=== PATIENT | female | born 1940 | race Caucasian/White ===

== ENCOUNTER → 2018-01-23 | Day surgery (SDC) | payer MEDICARE ==
--- NOTE | 2018-01-17 17:14 | Pre Op History & Physical ---
The patient will be presenting for cardiac catheterization with possible intervention on January. HISTORY: A 76-year-old lady with known hypertension, hypercholesterolemia, sleep apnea and GERD. The patient worsening general condition and worsening shortness of breath. She came to our office for evaluation of her severe shortness of breath and chest pressure, chest tightness. She had an ischemic evaluation in September 2017. We elected to treat her medically. However, she came back again on January 06, 2018 complaining of exertional angina with worsening shortness of breath relieved by rest. In view of that, the patient will be having presenting for cardiac catheterization with possible intervention. Her other problem is leg pain and burning sensation. There is slight difference in the leg size with the left being larger than the right. There is no history of deep venous thrombosis. She had venous Doppler done by her MD which showed no DVT. CURRENT MEDICATIONS: Zocor 20 mg, hydrochlorothiazide 25 mg, amlodipine 2.5 mg, Protonix. ALLERGIES: ASPIRIN CAUSING ANAPHYLAXIS. LEVAQUIN, RASH. LISINOPRIL CAUSING COUGH. PAST MEDICAL HISTORY: 1. Hypercholesterolemia. 2. Hypertension. 3. Dizziness. 4. Repeated urinary tract infection. 5. Cholecystectomy. 6. Hysterectomy. 7. Tonsillectomy. 8. Appendectomy. SOCIAL HISTORY: She is . She stopped smoking in the 1980s. She is not an alcohol drinker. FAMILY HISTORY: Father of myocardial infarction at the age of 78. Mother at age 78 with diabetes mellitus and myocardial infarction. Several siblings with coronary artery disease and bypass surgery and hypertension. REVIEW OF SYSTEMS: GENERAL: No fever, no chills. HEENT: Dry mouth. PULMONARY: Moderate shortness of breath on exertion. CARDIAC: As per acute illness. GI: No hematemesis, no melena. : Increased frequency of urination. LOWER EXTREMITIES: Chronic swelling of the lower extremities. NEUROLOGIC: No headache, no seizures, peripheral neuropathy symptoms. PHYSICAL EXAMINATION VITAL SIGNS: Height 5 feet 7 inches, weight 204 pounds, blood pressure 140/80. HEENT: Pupils are reactive. NECK: No elevation of jugular venous pulsation. CHEST: Clear to auscultation and percussion. HEART: PMI at the 5th left intercostal space. Normal 1st and 2nd heart sounds. ABDOMEN: Soft. EXTREMITIES: Mild peripheral edema. NEUROLOGIC: Nonfocal. IMPRESSION: Exertional angina. Low-risk nuclear stress test on September 25, 2017 showing small partially reversible inferior defect. The patient treated medically. Unfortunately, she continued to have a lot of symptoms so she will be presenting for cardiac catheterization with possible intervention. Her other problems include hypertension, hypercholesterolemia and chronic swelling of the lower extremities. PLAN: Cardiac catheterization with possible intervention. Procedure, risks, benefits and alternatives are discussed and explained. Questions are answered. 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 Job#: [id number]
[2018-01-21 12:13] LABS: BASOPHILS # (AUTO) 0.1 (0.0-0.1); BASOPHILS % 0.9 % (0.0-1.0); EOSINOPHILS # (AUTO) 0.5 (0.0-0.4); EOSINOPHILS % 6.2 % (0.0-6.0); HEMATOCRIT 40.5 % (34.2-44.1); HEMOGLOBIN 13.6 g/dL (12.0-16.0); LYMPHOCYTES # (AUTO) 2.5 (1.0-3.2); LYMPHOCYTES % 32.3 % (18.0-39.1); MEAN CORPUSCULAR HEMOGLOBIN 31.8 pg (28-32); MEAN CORPUSCULAR HGB CONC 33.6 g/dL (31-35); MEAN CORPUSCULAR VOLUME 94.6 fL (81-99); MONOCYTES # (AUTO) 0.7 (0.2-0.8); MONOCYTES % 8.7 % (4.4-11.3); NEUTROPHILS % 51.1 % (38.7-80.0); PLATELET COUNT 282 x10e3/uL (140-360); RED BLOOD COUNT 4.28 x10e6/uL (3.6-5.1); RED CELL DISTRIBUTION WIDTH 12.3 % (11.7-14.4)
[2018-01-21 12:21] LABS: INR 1.09; PROTHROMBIN TIME 13.3 seconds (11.9-14.5)
[2018-01-21 12:22] LABS: PARTIAL THROMBOPLASTIN TIME 25.8 seconds (23.8-35.5)
[2018-01-21 12:32] LABS: ALBUMIN 4.4 g/dL (3.5-5.0); ALBUMIN/GLOBULIN RATIO 1.4 (0.8-2.0); ANION GAP 15.8 mmol/L (8-16); CREATININE, SERUM 1.02 mg/dL (0.57-1.11); POTASSIUM 4.8 mmol/L (3.5-5.1)
--- NOTE | 2018-01-21 12:59 | Diagnostic Imaging Report ---
EXAMINATION: CHEST 2 VIEWS INDICATION: \S\PREOP FOR LEFT HEART CATH PROCEDURE COMPARISON: Chest x-ray 01/19/2016 FINDINGS: PA and lateral views TUBES and LINES: None. LUNGS: Lungs are well inflated. Lungs are clear. There is no evidence of pneumonia or pulmonary edema. PLEURA: No pleural effusion or pneumothorax. HEART AND MEDIASTINUM: The cardiomediastinal silhouette is unremarkable. BONES AND SOFT TISSUES: No acute osseous lesion. Soft tissues are unremarkable. UPPER ABDOMEN: No free air under the diaphragm. IMPRESSION: No acute thoracic abnormality. Signed by: Dr. Jesse Mancia M.D. on 01/21/2018 12:56 PM
[~2018-01-23] VITALS: Ht 171.4 cm; Wt 92.5 kg
[2018-01-23] VITALS (18 sets, daily range): BP systolic 121–159; BP diastolic 64–101
[~2018-01-23] MED LIST: AMLODIPINE BESYL5 MG PO; CALCIUM 600 +1 EAC2; CALCIUM600 MG PO; CRESTOR10 MG PO; FENTANYL CITRATE/PF 100MCG/2 ML INJ ONE; FISH OIL 1,0001 EAC2 PO; FISH OIL 1,2001 EAC1 PO; HEPARIN SOD/SOD CHLORIDE 2,000 ML ONE; HYDROCHLOROTHIA25 MG; HYDROCODONE/APAP 5MG-325MG TAB ONE; IOPAMIDOL 370 MG/ML 200 ML INFUS..BTL INJ ONE; LEVOCETIRIZINE D5 MG PO; LIDOCAINE HCL 2% LOCAL 20 ML VIAL ONE; MIDAZOLAM HCL 2 MG/2 ML VIAL ONE; PANTOPRAZOLE SO40 MG PO; PENTOXIFYLLINE400 MG PO; PRENATAL TABLE1 EAC1 PO; PRENATAL VITAM1 EACH; RESTASIS1 EACH; SLEEP AID25 M1 PO; SODIUM CHLORIDE 0.9% 1000ML 1,000 ML ONE; SULFAMETH/TRIMETH PO; ULTRAM 50MG50 MG PO; ULTRAM50 MG PO; VITAMIN C1000 MG PO; ZOCOR20 MG PO; crestor; pantoprazole; tramadol
--- NOTE | 2018-01-23 10:05 | Operative Report ---
DATE OF PROCEDURE: January 23, 2018 OPERATION PERFORMED: Left cardiac catheterization. INDICATIONS: Please refer to the dictated H and P note. TECHNICAL DETAILS: After the usual sterile preparation and draping procedure, intravenous Versed and fentanyl were given for sedation and local Xylocaine for anesthesia. A 4-Upper Sorbian sheath was established in place. Derek left 4 and 3DRC catheters to engage the coronaries. Pigtail for hemodynamic measurement and left ventriculogram. At the end of the procedure, the sheath was removed. Hemostasis was achieved manually. No complication and no blood loss. RESULTS A. Coronary angiogram: 1. Left main: Short left main. 2. LAD: Torturous, giving medium-size diagonal. There are several lesions at 40% distally and at the bend 50%. 3. Circumflex coronary artery: Minimal plaquing, giving very large obtuse marginal. 4. Right coronary artery: A few plaques are noted, dominant artery. B. Hemodynamics: Aortic pressure 140/80. LV pressure 140/18. C. Left ventriculogram in the right anterior oblique view showed normal size ventricle, hypercontractile with ejection fraction of 65% to 70%, with no segmental wall motion abnormality. IMPRESSION 1. Short left main. 2. Dominant right coronary artery. 3. Tortuous artery. 4. Several plaques in very tortuous left anterior descending as described above. 5. Left ventricular ejection fraction of 65% to 70%. COMPLICATIONS: None. BLOOD LOSS: None. Job#: [id number]
== END | disposition home or self-care (01) ==
LOC: CATH LAB 06:23
PROVIDERS: ATTEND Internal Medicine Cardiovascular Disease
DX: I20.8 Other forms of angina pectoris (principal); R94.39 Abnormal result of other cardiovascular function study; I11.9 Hypertensive heart disease without heart failure; I77.1 Stricture of artery; E78.00 Pure hypercholesterolemia, unspecified; M79.89 Other specified soft tissue disorders; R06.09 Other forms of dyspnea; G47.30 Sleep apnea, unspecified; K21.9 Gastro-esophageal reflux disease without esophagitis; Z88.6 Allergy status to analgesic agent; Z88.1 Allergy status to other antibiotic agents; Z88.8 Allergy status to other drugs, medicaments and biological substances; Z01.818 Encounter for other preprocedural examination; Z01.812 Encounter for preprocedural laboratory examination; Z87.891 Personal history of nicotine dependence; Z87.440 Personal history of urinary (tract) infections; Z82.49 Family history of ischemic heart disease and other diseases of the circulatory system
CPT/HCPCS: 36415; 71046; 80053; 85025; 85610; 85730; 93458; C1766; J2001; J2250; J7030; Q9967

== ENCOUNTER → 2021-04-21 | Day surgery (SDC) | payer MEDICARE ==
[2021-04-19 12:07] LABS: BASOPHILS # (AUTO) 0.1 (0.0-0.1); BASOPHILS % 0.6 % (0.0-1.0); EOSINOPHILS # (AUTO) 0.4 (0.0-0.4); EOSINOPHILS % 4.9 % (0.0-6.0); HEMATOCRIT 37.8 % (34.2-44.1); HEMOGLOBIN 11.9 g/dL (12.0-16.0); LYMPHOCYTES # (AUTO) 2.3 (1.0-3.2); LYMPHOCYTES % 26.7 % (18.0-39.1); MEAN CORPUSCULAR HEMOGLOBIN 30.1 pg (28-32); MEAN CORPUSCULAR HGB CONC 31.5 g/dL (31-35); MEAN CORPUSCULAR VOLUME 95.7 fL (81-99); MONOCYTES # (AUTO) 0.7 (0.2-0.8); MONOCYTES % 8.3 % (4.4-11.3); NEUTROPHILS % 58.8 % (38.7-80.0); PLATELET COUNT 311 x10e3/uL (140-360); RED BLOOD COUNT 3.95 x10e6/uL (3.6-5.1); RED CELL DISTRIBUTION WIDTH 13.3 % (11.7-14.4)
[2021-04-19 12:29] LABS: ANION GAP 13.3 mmol/L (8-16); CREATININE, SERUM 1.29 mg/dL (0.57-1.11); POTASSIUM 4.3 mmol/L (3.5-5.1)
[~2021-04-21] MED LIST changes: +BUPIVACAINE HCL 0.5% INJ 30 ML VIAL INJ ONE; +DEXAMETHASONE SOD PHOS INJ 4 MG/ML SDV ONE; -FENTANYL CITRATE/PF 100MCG/2 ML INJ ONE; +GLIMEPIRIDE1 MG; -HEPARIN SOD/SOD CHLORIDE 2,000 ML ONE; -HYDROCODONE/APAP 5MG-325MG TAB ONE; -IOPAMIDOL 370 MG/ML 200 ML INFUS..BTL INJ ONE; -LIDOCAINE HCL 2% LOCAL 20 ML VIAL ONE; +LOSARTAN POTASS25 MG PO; -MIDAZOLAM HCL 2 MG/2 ML VIAL ONE; +ONDANSETRON HCL INJ 2MG/ML 2ML 2 MG/ML VIAL ONE; +POVIDONE IODINE 0.05% 0.05 % ML PO ONE; +PROPOFOL IV EMULSION 10 MG/ML 20 ML VIAL ONE; +SEVOFLURANE INHAL SOLN 250 ML PEN BTL ONE; -SODIUM CHLORIDE 0.9% 1000ML 1,000 ML ONE
[2021-04-21 08:46] VITALS: BP 148/80
== END | disposition home or self-care (01) ==
LOC: OR 05:25
PROVIDERS: ATTEND Podiatrist Foot Surgery
DX: M86.9 Osteomyelitis, unspecified (principal); L89.899 Pressure ulcer of other site, unspecified stage; M20.42 Other hammer toe(s) (acquired), left foot; G47.33 Obstructive sleep apnea (adult) (pediatric); E11.22 Type 2 diabetes mellitus with diabetic chronic kidney disease; I13.0 Hypertensive heart and chronic kidney disease with heart failure and stage 1 through stage 4 chronic kidney disease, or unspecified chronic kidney disease; N18.9 Chronic kidney disease, unspecified; I50.9 Heart failure, unspecified; I44.7 Left bundle-branch block, unspecified; Z88.6 Allergy status to analgesic agent; Z88.1 Allergy status to other antibiotic agents; Z88.8 Allergy status to other drugs, medicaments and biological substances; Z01.810 Encounter for preprocedural cardiovascular examination; Z01.812 Encounter for preprocedural laboratory examination; Z01.818 Encounter for other preprocedural examination; Z20.822 Contact with and (suspected) exposure to COVID-19; Z79.84 Long term (current) use of oral hypoglycemic drugs; Z79.899 Other long term (current) drug therapy
CPT/HCPCS: 28825; 36415 ×2; 71046; 76000; 80048; 82948; 85025; 87071; 87075; 87205; 93005; J0690; J1100; J2405; J2704; U0002

== ENCOUNTER → 2021-10-13 | Outpatient (CLI) | payer MEDICARE ==
[~2021-10-13] MED LIST changes: -BUPIVACAINE HCL 0.5% INJ 30 ML VIAL INJ ONE; -DEXAMETHASONE SOD PHOS INJ 4 MG/ML SDV ONE; -ONDANSETRON HCL INJ 2MG/ML 2ML 2 MG/ML VIAL ONE; -POVIDONE IODINE 0.05% 0.05 % ML PO ONE; -PROPOFOL IV EMULSION 10 MG/ML 20 ML VIAL ONE; -SEVOFLURANE INHAL SOLN 250 ML PEN BTL ONE
== END ==
LOC: US 08:21
PROVIDERS: ATTEND Urology
DX: N18.9 Chronic kidney disease, unspecified (principal); R80.9 Proteinuria, unspecified
CPT/HCPCS: 74018; 76770; 76857

== ENCOUNTER 2022-10-08 13:55 | Inpatient (IN) | payer MEDICARE ==
[~2022-10-08] VITALS: Ht 171.4 cm; Wt 90.7 kg
[2022-10-08] MEDS ORDERED: HYDRALAZINE HCL 20 MG/ML VIAL IV STA (14:31)
[2022-10-08 14:52] LABS: BASOPHILS # (AUTO) 0.1 (0.0-0.1); BASOPHILS % 0.5 % (0.0-1.0); EOSINOPHILS # (AUTO) 0.3 (0.0-0.4); EOSINOPHILS % 1.6 % (0.0-6.0); HEMATOCRIT 37.5 % (34.2-44.1); HEMOGLOBIN 11.7 g/dL (12.0-16.0); LYMPHOCYTES # (AUTO) 1.7 (1.0-3.2); LYMPHOCYTES % 9.8 % (18.0-39.1); MEAN CORPUSCULAR HEMOGLOBIN 30.2 pg (28-32); MEAN CORPUSCULAR HGB CONC 31.2 g/dL (31-35); MEAN CORPUSCULAR VOLUME 96.9 fL (81-99); MONOCYTES # (AUTO) 1.1 (0.2-0.8); MONOCYTES % 6.4 % (4.4-11.3); NEUTROPHILS # (AUTO) 13.6 (2.1-6.9); NEUTROPHILS % 80.9 % (38.7-80.0); PLATELET COUNT 379 x10e3/uL (140-360); RED BLOOD COUNT 3.87 x10e6/uL (3.6-5.1); RED CELL DISTRIBUTION WIDTH 14.1 % (11.7-14.4)
[2022-10-08 14:57] LABS: INR 1.01; PROTHROMBIN TIME 13.8 seconds (11.9-14.5)
[2022-10-08 14:58] LABS: PARTIAL THROMBOPLASTIN TIME 28.5 seconds (23.8-35.5)
[2022-10-08 15:05] LABS: ALANINE AMINOTRANSFERASE 25 IU/L (0-55); ALBUMIN 4.3 g/dL (3.5-5.0); ALBUMIN/GLOBULIN RATIO 1.5 (0.8-2.0); ALKALINE PHOSPHATASE 47 IU/L (40-150); BLOOD UREA NITROGEN 20 mg/dL (7-26); BUN/CREATININE RATIO 21 (6-25); CALCIUM 9.2 mg/dL (8.4-10.2); CARBON DIOXIDE 24 mmol/L (22-29); CHLORIDE 107 mmol/L (98-107); CREATININE, SERUM 0.97 mg/dL (0.57-1.11); GLUCOSE 122 mg/dL (74-118); MAGNESIUM 2.1 MG/DL (1.3-2.1); SODIUM 142 mmol/L (136-145)
[2022-10-08 15:25] LABS: CLARITY,URINE SL CLOUDY (CLEAR); COLOR,URINE YELLOW (YELLOW); LEUKOCYTE ESTERASE ,URINE NEGATIVE (NEGATIVE); NITRITE,URINE NEGATIVE (NEGATIVE); PROTEIN,URINE DIPSTICK NEGATIVE (NEGATIVE)
[2022-10-08 15:26] LABS: KETONES,URINE NEGATIVE (NEGATIVE); URINE UROBILINOGEN 0.2 mg/dL (0.2 - 1)
[2022-10-08 15:40] LABS: BACTERIA,URINE FEW /HPF; EPITHELIAL CELLS,URINE FEW /LPF; WBC,URINE (MAN) 0-5 /HPF (0-5)
[2022-10-08] MEDS ORDERED: SODIUM CHLORIDE 0.9% 1000ML 1,000 ML IV ONE (15:45)
[2022-10-08] MEDS ORDERED: CEFTRIAXONE 1 GM VIAL IM ONE (15:45)
[2022-10-08] MEDS ORDERED: Vancomycin IV 1 GM in SODIUM CHLORIDE 0.9% 250ML 250 ML IV ONE (16:45)
[2022-10-08] MEDS ORDERED: ONDANSETRON HCL INJ 2MG/ML 2ML 2 MG/ML VIAL IV PRN (18:15)
[2022-10-08] MEDS ORDERED: Morphine 2mg Syringe 2 MG/ML SYR IV PRN (18:15)
[2022-10-08] MEDS: FAMOTIDINE 20 MG/2 ML VIAL IV SCH (18:59)
[2022-10-09] VITALS (12 sets, daily range): BP systolic 139–153; BP diastolic 56–90; PULSE 68–85; RESP 17–20; TEMP 98.1–98.7; O2SAT 95–100
[2022-10-09] MEDS ORDERED: HYDRALAZINE HCL 20 MG/ML VIAL IV PRN
[2022-10-09] MEDS ORDERED: ACETAMINOPHEN 325 MG TAB PO PRN
[2022-10-09] MEDS ORDERED: AMLODIPINE BESYL5 MG PO (00:09)
[2022-10-09] MEDS ORDERED: SODIUM CHLORIDE 0.9% 100 ML ONE (04:01)
[2022-10-09 06:03] LABS: BASOPHILS # (AUTO) 0.1 (0.0-0.1); BASOPHILS % 0.5 % (0.0-1.0); EOSINOPHILS # (AUTO) 0.3 (0.0-0.4); EOSINOPHILS % 2.1 % (0.0-6.0); HEMATOCRIT 34.5 % (34.2-44.1); HEMOGLOBIN 10.9 g/dL (12.0-16.0); LYMPHOCYTES # (AUTO) 1.9 (1.0-3.2); LYMPHOCYTES % 12.8 % (18.0-39.1); MEAN CORPUSCULAR HGB CONC 31.6 g/dL (31-35); MONOCYTES % 6.9 % (4.4-11.3); NEUTROPHILS # (AUTO) 11.3 (2.1-6.9); NEUTROPHILS % 77.2 % (38.7-80.0); PLATELET COUNT 310 x10e3/uL (140-360); RED BLOOD COUNT 3.63 x10e6/uL (3.6-5.1); RED CELL DISTRIBUTION WIDTH 14.3 % (11.7-14.4)
[2022-10-09] MEDS: FAMOTIDINE 20 MG/2 ML VIAL IV SCH ×2 (06:25→16:51)
[2022-10-09 06:33] LABS: ANION GAP 12.5 mmol/L (8-16); CREATININE, SERUM 0.84 mg/dL (0.57-1.11); POTASSIUM 3.5 mmol/L (3.5-5.1)
[2022-10-09 06:34] LABS: ALBUMIN 3.7 g/dL (3.5-5.0); ALBUMIN/GLOBULIN RATIO 1.4 (0.8-2.0)
[2022-10-09 06:58] LABS: PHOSPHORUS 3.1 MG/DL (2.3-4.7)
[2022-10-09] MEDS ORDERED: GLIMEPIRIDE1 MG PO (18:31)
[2022-10-09] MEDS: SIMVASTATIN 20 MG TAB PO SCH (21:21)
[2022-10-09] MEDS: ZOLPIDEM TARTRATE 10 MG TAB PO PRN (21:21)
[2022-10-10] VITALS (9 sets, daily range): BP systolic 141–166; BP diastolic 54–88; PULSE 71–92; RESP 17–20; TEMP 97.8–98.4; O2SAT 97–100
[2022-10-10] MEDS: FAMOTIDINE 20 MG/2 ML VIAL IV SCH (05:21)
[2022-10-10 05:48] LABS: BASOPHILS # (AUTO) 0.1 (0.0-0.1); BASOPHILS % 0.5 % (0.0-1.0); EOSINOPHILS # (AUTO) 0.3 (0.0-0.4); EOSINOPHILS % 3.6 % (0.0-6.0); HEMATOCRIT 33.8 % (34.2-44.1); HEMOGLOBIN 10.7 g/dL (12.0-16.0); LYMPHOCYTES # (AUTO) 1.9 (1.0-3.2); LYMPHOCYTES % 19.9 % (18.0-39.1); MEAN CORPUSCULAR HEMOGLOBIN 30.2 pg (28-32); MEAN CORPUSCULAR HGB CONC 31.7 g/dL (31-35); MEAN CORPUSCULAR VOLUME 95.5 fL (81-99); MONOCYTES # (AUTO) 0.8 (0.2-0.8); MONOCYTES % 8.8 % (4.4-11.3); NEUTROPHILS # (AUTO) 6.3 (2.1-6.9); NEUTROPHILS % 66.5 % (38.7-80.0); PLATELET COUNT 304 x10e3/uL (140-360); RED BLOOD COUNT 3.54 x10e6/uL (3.6-5.1); RED CELL DISTRIBUTION WIDTH 14.3 % (11.7-14.4)
[2022-10-10 06:27] LABS: ALBUMIN 3.6 g/dL (3.5-5.0); ALBUMIN/GLOBULIN RATIO 1.3 (0.8-2.0); ANION GAP 12.7 mmol/L (8-16); CALCIUM 8.8 mg/dL (8.4-10.2); CREATININE, SERUM 0.82 mg/dL (0.57-1.11); POTASSIUM 3.7 mmol/L (3.5-5.1)
[2022-10-10 07:55] LABS: THYROID STIMULATING HORMONE 2.215 uIU/mL (0.350-4.940)
[2022-10-10] MEDS: GLIMEPIRIDE 2 MG TAB PO SCH (08:49)
[2022-10-10] MEDS: AMLODIPINE BESYLATE 5 MG TAB PO SCH (09:00)
[2022-10-10] MEDS: LOSARTAN POTASSIUM 25 MG TAB PO SCH (09:01)
[2022-10-10] MEDS ORDERED: ONDANSETRON HCL 4 MG ORAL DISINTEGRATING TAB PO PRN (11:45)
[2022-10-10] MEDS: FAMOTIDINE 20 MG TAB PO SCH (16:02)
[2022-10-10] MEDS: ZOLPIDEM TARTRATE 10 MG TAB PO PRN (21:53)
[2022-10-10] MEDS: SIMVASTATIN 20 MG TAB PO SCH (21:53)
[2022-10-11] VITALS (9 sets, daily range): BP systolic 131–153; BP diastolic 50–66; PULSE 72–87; RESP 18–21; TEMP 98.1–98.7; O2SAT 96–99
[2022-10-11] MEDS: FAMOTIDINE 20 MG TAB PO SCH ×2 (07:30→16:58)
[2022-10-11] MEDS: GLIMEPIRIDE 2 MG TAB PO SCH (07:48)
[2022-10-11] MEDS ORDERED: BUPIVACAINE HCL 0.5% INJ 30 ML VIAL INJ ONE ×2 (08:40)
[2022-10-11] MEDS ORDERED: NEOSTIGMINE 1 MG/ML 10ML VIAL ONE (08:41)
[2022-10-11] MEDS: AMLODIPINE BESYLATE 5 MG TAB PO SCH (11:22)
[2022-10-11] MEDS: LOSARTAN POTASSIUM 25 MG TAB PO SCH (11:23)
[2022-10-11] MEDS ORDERED: ONDANSETRON HCL INJ 2MG/ML 2ML 2 MG/ML VIAL ONE (13:24)
[2022-10-11] MEDS ORDERED: LIDOCAINE HCL 2% LOCAL INJ 5 ML SDV VIAL INJ ONE (13:24)
[2022-10-11] MEDS ORDERED: PROPOFOL IV EMULSION 10 MG/ML 20 ML VIAL ONE (13:24)
[2022-10-11] MEDS ORDERED: SEVOFLURANE INHAL SOLN 250 ML PEN BTL ONE (13:24)
[2022-10-11] MEDS ORDERED: POVIDONE IODINE 0.05% 0.05 % ML PO ONE (13:24)
[2022-10-11] MEDS ORDERED: FENTANYL CITRATE/PF 100MCG/2 ML INJ ONE (14:08)
[2022-10-11] MEDS: TRAMADOL HCL 50 MG TAB PO PRN (18:43)
[2022-10-11] MEDS: SIMVASTATIN 20 MG TAB PO SCH (21:18)
[2022-10-11] MEDS: ZOLPIDEM TARTRATE 10 MG TAB PO PRN (22:28)
[2022-10-12 06:31] VITALS: PULSE 80; RESP 20; O2SAT 98
[2022-10-12] MEDS: FAMOTIDINE 20 MG TAB PO SCH ×2 (08:30→16:30)
[2022-10-12 08:42] VITALS: BP 144/58; PULSE 69; RESP 16; TEMP 98.6; O2SAT 96
[2022-10-12] MEDS: GLIMEPIRIDE 2 MG TAB PO SCH (08:54)
[2022-10-12 08:55] VITALS: BP 144/58; PULSE 69; RESP 16; TEMP 98.6; O2SAT 96
[2022-10-12] MEDS: LOSARTAN POTASSIUM 25 MG TAB PO SCH (09:16)
[2022-10-12] MEDS: AMLODIPINE BESYLATE 5 MG TAB PO SCH (09:16)
[2022-10-12] MEDS ORDERED: ACETAMINOPHEN325 M1 PO (09:18)
[2022-10-12] MEDS ORDERED: ONDANSETRON ODT4 MG PO (09:18)
[2022-10-12 12:07] VITALS: BP 134/55; PULSE 73; RESP 19; TEMP 98.8; O2SAT 97
[2022-10-12] MEDS: TRAMADOL HCL 50 MG TAB PO PRN (13:33)
[2022-10-12 15:55] VITALS: BP 141/55; PULSE 74; RESP 17; TEMP 98.6; O2SAT 97
== END 2022-10-12 17:58 | disposition home or self-care (01) | DRG 854 ==
LOC: ER 13:59 → ERHOLD 18:07 → MED/SURG2 23:27
PROVIDERS: ADMIT Internal Medicine; ATTEND Internal Medicine
PROC: 3E03329 Introduction of Other Anti-infective into Peripheral Vein, Percutaneous Approach (ICD-10-PCS; 2022-10-08)
PROC: 0Y6Q0Z1 Detachment at Left 1st Toe, High, Open Approach (ICD-10-PCS; principal; 2022-10-11 09:29)
PROC: 0QBR0ZZ Excision of Left Toe Phalanx, Open Approach (ICD-10-PCS; 2022-10-11 09:29)
DX: A41.9 Sepsis, unspecified organism (principal); L03.116 Cellulitis of left lower limb; L97.528 Non-pressure chronic ulcer of other part of left foot with other specified severity; M86.8X7 Other osteomyelitis, ankle and foot; E11.69 Type 2 diabetes mellitus with other specified complication; E11.621 Type 2 diabetes mellitus with foot ulcer; I10 Essential (primary) hypertension; J44.9 Chronic obstructive pulmonary disease, unspecified; M20.42 Other hammer toe(s) (acquired), left foot; Z77.090 Contact with and (suspected) exposure to asbestos; Z66 Do not resuscitate; M25.519 Pain in unspecified shoulder; I16.0 Hypertensive urgency; K57.90 Diverticulosis of intestine, part unspecified, without perforation or abscess without bleeding; E11.628 Type 2 diabetes mellitus with other skin complications; I25.118 Atherosclerotic heart disease of native coronary artery with other forms of angina pectoris; E78.00 Pure hypercholesterolemia, unspecified; G47.30 Sleep apnea, unspecified; K21.9 Gastro-esophageal reflux disease without esophagitis; E11.51 Type 2 diabetes mellitus with diabetic peripheral angiopathy without gangrene; I83.93 Asymptomatic varicose veins of bilateral lower extremities; Z87.891 Personal history of nicotine dependence; Z91.81 History of falling; Z90.49 Acquired absence of other specified parts of digestive tract; Z89.422 Acquired absence of other left toe(s); Z82.49 Family history of ischemic heart disease and other diseases of the circulatory system; Z83.3 Family history of diabetes mellitus
CPT/HCPCS: 0223U; 36415; 71045; 74176; 76000; 80053; 80061; 81001; 82550; 82553; 82948; 83036; 83605; 83735; 83880; 84100; 84443; 84484; 85025; 85610; 85730; 87040; 87071; 87075; 87186; 87205; 88304; 88305; 88311; 93005; 93306; 93925; 94799; 99284; J0696; J2001; J2405; J2710; J7030; J7050